=== PATIENT | female | born 1990 | race Caucasian/White ===

== ENCOUNTER 2025-08-26 13:32 | Outpatient (AMB) | payer BC, SELFPAY ==
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
[2025-08-26 13:59] VITALS: BP 106/60; PULSE 82; RESP 12; TEMP 37.1; O2SAT 98; BMI 28.0
--- OUTSIDE RECORDS SUMMARY | 2025-08-26 15:54 | XMS_ITS | Patient Health Record ---
Author Organization [facility] Address [address] [place] [address] Care Team Providers Care Portable Trackman Name Role Phone Ruchi Dean Primary Care Provider Ariadne rubinailaCarmelo Samaniego Unavailable [phone] Reason For Referral No Information Medications Medication SIG (Take, Route, Frequency, Duration) Notes Start Date End Date Status Xanax 10 mg Active Active Citalopram Hydrobromide 20 MG Orally Once a day Active Social History Tobacco use other than smoking: Question Answer Notes Are you an other tobacco user? No Problems Problem Type SNOMED Code ICD Code Onset Dates Problem Status W/U Status Risk Notes Problem Swelling of first metatarsophalangeal joint of hallux (413347850) Bunion, right foot (M21.611) Active confirmed Plan Of Treatment No Information Insurance Providers Payer Name Payer Address Payer Phone Subscriber Number Group Number Insured Name Patient Relationship to Insured Coverage Start Date Coverage End Date [facility] [address] [facility] [id number] Destinee Muñoz Self - patient is the insured Medical (General) History Medical History History ICD Code Anxiety Back,Hip,and Knee pain Depression Headaches Reflux ( GERD) Sciatica
== END 2025-08-26 14:22 | disposition home or self-care (01) ==
LOC: HO.HMCFM 13:33
PROVIDERS: PCP Internal Medicine; Visit Provider Internal Medicine
DX: Z00.00 Encounter for general adult medical examination without abnormal findings (principal); Z3A.17 17 weeks gestation of pregnancy; F41.9 Anxiety disorder, unspecified; S39.92XA Unspecified injury of lower back, initial encounter; F33.41 Major depressive disorder, recurrent, in partial remission; Z76.89 Persons encountering health services in other specified circumstances

== ENCOUNTER → 2025-08-26 13:32 | Outpatient (BNVA) | payer BC, SELFPAY | PROVIDERS: PCP Internal Medicine; Visit Provider Internal Medicine | DX: Z76.89 Persons encountering health services in other specified circumstances (principal); O99.342 Other mental disorders complicating pregnancy, second trimester; F41.9 Anxiety disorder, unspecified; F33.41 Major depressive disorder, recurrent, in partial remission; O9A.212 Injury, poisoning and certain other consequences of external causes complicating pregnancy, second trimester; S39.92XA Unspecified injury of lower back, initial encounter; Z3A.17 17 weeks gestation of pregnancy; X58.XXXA Exposure to other specified factors, initial encounter; Y93.9 Activity, unspecified; Y92.9 Unspecified place or not applicable; Y99.9 Unspecified external cause status; Z13.31 Encounter for screening for depression; Z13.39 Encounter for screening examination for other mental health and behavioral disorders | CPT/HCPCS: 96127 ==